=== PATIENT | male | born 1985 | race Caucasian/White ===

== ENCOUNTER 2016-12-30 22:21 | Emergency (ER) | payer OTHER ==
[~2016-12-30] VITALS: Ht 167.6 cm; Wt 70.8 kg
[2016-12-31 00:39] VITALS: BP 131/74
== END 2016-12-31 01:53 | disposition home or self-care (01) ==
LOC: ED 23:59
DX: F10.220 Alcohol dependence with intoxication, uncomplicated (principal); F32.9 Major depressive disorder, single episode, unspecified
CPT/HCPCS: 99281